=== PATIENT | male | born 1995 | race Hispanic/Latino ===

== ENCOUNTER 2020-03-21 09:14 | Emergency (ER) | payer OTHER ==
[~2020-03-21] VITALS: Ht 175.3 cm; Wt 61.2 kg
[2020-03-23] MEDS ORDERED: ZYPREXA5 MG PO (07:49)
== END 2020-03-23 13:46 | disposition short-term general hospital (02) ==
LOC: ED 09:14
DX: S61.512A Laceration without foreign body of left wrist, initial encounter (principal); S61.511A Laceration without foreign body of right wrist, initial encounter; F22 Delusional disorders; Z88.6 Allergy status to analgesic agent; Z88.8 Allergy status to other drugs, medicaments and biological substances; X78.9XXA Intentional self-harm by unspecified sharp object, initial encounter
CPT/HCPCS: 12005; 80053; 80176; 81001; 84443; 85025; 90471; 90715; 99285-25; G0480; J7030

== ENCOUNTER 2020-03-23 19:49 | Emergency (ER) | payer OTHER ==
[~2020-03-23] VITALS: Ht 185.4 cm; Wt 59.0 kg
[~2020-03-23 19:49] MED LIST: ZYPREXA5 MG PO
--- OUTSIDE RECORDS SUMMARY | 2020-03-23 19:52 | XMS ---
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 Jorge Alberto has no Care Guidelines for this patient. [facility]12 MO.) [facility] NOTE: Visits indicate total known visits[facility] ED/[facility] VISIT TRACKING (12 MO.) 03/23/2020 19:[address] [facility] TYPE: Emergency COMPLAINT: - SUICIDAL THOUGHTS 03/21/2020 09:15 [facility] TYPE: Emergency COMPLAINT: - MULTIPLE LACS INPATIENT VISIT TRACKING (12 MO.) No inpatient visits to display in this time frame [id number]
== END 2020-03-24 09:25 | disposition home or self-care (01) ==
LOC: ED 19:49
DX: F29 Unspecified psychosis not due to a substance or known physiological condition (principal); S51.812A Laceration without foreign body of left forearm, initial encounter; S51.811A Laceration without foreign body of right forearm, initial encounter; X58.XXXA Exposure to other specified factors, initial encounter
CPT/HCPCS: 80053; 80176; 81001; 84443; 85025; 99284; G0480